=== PATIENT | female | born 1965 | race Caucasian/White ===

== ENCOUNTER 2019-08-30 13:19 | Emergency (ER) | payer SELFPAY ==
[2019-08-30] MEDS ORDERED: Ketorolac Tromethamine 30 MG/ML VIAL ONE (14:32)
--- NOTE | 2019-08-30 14:44 | RAD ---
RIGHT HIP 2 VIEWS: Date: 08/30/19 HISTORY: Injury. Right hip pain. FINDINGS/IMPRESSION: There are degenerative changes in the right hip joint. No fracture or dislocation identified. POS: [facility]
--- NOTE | 2019-08-30 15:16 | RAD ---
RIGHT KNEE 4 VIEWS: Date: 08/30/19 HISTORY: Fall. Pain. FINDINGS: Mild degenerative change at lateral compartment and patellofemoral compartment. No fractures. No tiffani lignment. No significant joint effusion. IMPRESSION: No fracture. POS: [facility]
== END 2019-08-30 13:42 | disposition home or self-care (01) ==
LOC: ERS 13:19
DX: S70.01XA Contusion of right hip, initial encounter (principal); M25.561 Pain in right knee; F31.9 Bipolar disorder, unspecified; F41.9 Anxiety disorder, unspecified; F17.210 Nicotine dependence, cigarettes, uncomplicated; W10.9XXA Fall (on) (from) unspecified stairs and steps, initial encounter
CPT/HCPCS: 96372; J1885

== ENCOUNTER 2020-01-16 01:16 | Observation (INO) | payer SELFPAY ==
[2020-01-16 04:07] LABS: #Basophils 0.1 thou/uL (0.0-0.2); #Eosinphils 0.3 thou/uL (0.0-0.7); #Lymphocytes 4.4 thou/uL (1.20-3.40); #Neutrophils 6.3 thou/uL (1.40-6.50); %Basophils 0.7 % (0.0-1.0); %Eosinophils 2.2 % (0.0-10.0); %Lymphocytes 36.4 % (21.0-51.0); %Monocytes 8.5 % (0.0-10.0); %Neutrophils 52.3 % (42.0-75.0); Hemoglobin 13.4 g/dL (12.0-16.0); Mean Corpuscular HGB CONC 33.9 g/dL (32.0-36.0); Mean Corpuscular Hemoglobin 32.4 pg (27.0-31.0); Mean Corpuscular Volume 95.4 fL (78.0-98.0); Mean Platelet Volume 7.6 fL (7.4-10.4); Platelet Count 418 thou/uL (130-400); RBC Distribution Width 11.8 % (11.5-14.5); Red Blood Cell (RBC) Count 4.14 mill/uL (4.20-5.40)
[2020-01-16 04:20] LABS: ALT (SGPT) 16 U/L (8-55); AST (SGOT) 17 U/L (5-34); Albumin 3.9 g/dL (3.5-5.0); Alkaline Phosphatase 122 U/L (40-110); Anion Gap 13 mmol/L (10-20); BUN (Urea Nitrogen) 22 mg/dL (9.8-20.1); Bilirubin, Total 0.3 mg/dL (0.2-1.2); Calc. Creatinine Clearance 0 mL/min (70-130); Carbon Dioxide 25 mmol/L (22-29); Chloride 105 mmol/L (98-107); Estimated GFR-MDRD 65; Globulin 3.5 g/dL (2.4-3.5); Glucose 102 mg/dL (70-105); Lipase 30 U/L (8-78); Potassium 3.8 mmol/L (3.5-5.1); Protein, Total 7.4 g/dL (6.0-8.3); Sodium 139 mmol/L (136-145)
[2020-01-16 05:14] LABS: Acetaminophen Less than 6.0 mcg/mL (10.0-30.0); Alcohol Less than 10 mg/dL (Less than 10); Salicylate Less than 8.0 mg/dL (15.0-30.0)
[2020-01-16 08:28] VITALS: BMI 35.6
[2020-01-16 08:38] LABS: Troponin I Less than 0.010 ng/mL (< 0.028)
[2020-01-16] MEDS ORDERED: FLU VACC QS2019-20(6MOS UP)/PF 60 MCG/0.5 ML SYRINGE IM ONE (09:00)
[2020-01-16] MEDS: Famotidine/PF 20 mg/2ml Vial SLOW IVP SCH ×2 (09:22→21:20)
--- NOTE | 2020-01-16 09:30 | HP ---
CHIEF COMPLAINT: Chest pain and nausea and vomiting. HISTORY OF PRESENT ILLNESS: The patient is a 54-year-old female with no significant past medical history, who presents to the hospital with complaints of chest tightness to her back and throat and also some nausea, vomiting, and diaphoresis x1 day. The patient states that she works as a drive in waiter/waitress and she had a sudden onset of the chest tightness, which concerned her. She kind of works through the whole day and did not have any relief of the tightness, so she came into the hospital for further evaluation. She had nausea, vomiting, and threw up x2, but no diarrhea. She states that she takes a significant amount of ibuprofen and BC for generalized body aches and pains. PAST MEDICAL HISTORY: Denies. PAST SURGICAL HISTORY: She had tonsillectomy. FAMILY HISTORY: Father had mesothelioma. SOCIAL HISTORY: She smokes a pack a day every 3 or 4 days. No alcohol use. No drug use. She is a full code. REVIEW OF SYSTEMS: All negative except for the ones mentioned above in the HPI. PHYSICAL EXAMINATION: VITAL SIGNS: Temperature of 97.4, pulse 75, respiratory rate 20, oxygen saturation 99% on room air, and blood pressure 145/74. GENERAL: She is awake, alert, and oriented x3. Does not appear in distress. CARDIOVASCULAR: S1 and S2 present. No murmurs, rubs, or gallops. LUNGS: Clear to auscultation. No rhonchi or wheezes noted. ABDOMEN: Soft. Mild tenderness on epigastric and right upper quadrant, however, no guarding. Bowel sounds are present x2. EXTREMITIES: Lower extremity, no edema. Pedal pulses are present x2. NEUROVASCULAR: Neurovascular-tan, no focal deficits noted. SKIN: No cuts, lesions, or bruises noted. LABORATORY RESULTS: WBCs of 12.0, hemoglobin of 13.4, hematocrit of 39.5, and platelets of 418. Chemistries; sodium of 139, potassium of 3.8, BUN of 22, and creatinine of 0.90. Troponin x2 were negative. Her EKG appears to be normal sinus rhythm, nothing overnight on the monitor. ASSESSMENT AND PLAN: The patient is a 54-year-old female, who presents to the hospital with complaints of chest pain. 1. Chest pain, appears atypical in nature. Given the patient's risk factors, we will get her a stress test, also get a right upper quadrant ultrasound and also put her on a PPI. She has been taking a significant amount of ibuprofen. Her lipase is normal. I have advised her against taking so much ibuprofen or take it with food. We will see if her symptoms improve and we will continue to monitor. 2. Mildly elevated leukocytosis. It could be reactive. 3. Obesity. Educated on diet, exercise, and weight loss. 4. Deep vein thrombosis prophylaxis. We will put the patient on SCDs. 5. Mild nausea and vomiting. This could be secondary to her possible gallbladder. We will get a right upper quadrant ultrasound. Job ID: [id number]
[2020-01-16] MEDS: Enoxaparin Sodium 40 MG/0.4 ML SYRINGE SC SCH (11:32)
[2020-01-16] MEDS: Acetaminophen 325 MG TAB PO PRN (11:35)
--- NOTE | 2020-01-16 12:41 | RAD ---
CHEST 1 VIEW: Date: 01/16/2020 HISTORY: Chest tightness. COMPARISON: 03/14/2017. FINDINGS: Mild hyperinflation with some linear parenchymal changes in the bases, possibly chronic change or sub segmental atelectasis. No confluent pneumonia, overt edema, or pleural effusion. IMPRESSION: Mild hyperinflation. Minimal more chronic appearing linear changes in the bases. No significant new p rocess. POS: [facility]
--- NOTE | 2020-01-16 14:55 | ULT ---
Exam: Right upper quadrant ultrasound: HISTORY: Nausea and vomiting COMPARISON: None FINDINGS: Visualized liver:Coarse heterogeneous liver echogenicity evidence for fatty change. Gallbladder:No evidence of gallstones, wall thickening, edema, or pericholecystic fluid. Common bile duct:Within normal limits. 2.3 x 3.2 cm right renal cyst. No renal hydronephrosis. Visualized pancreas is unremarkable. No evidence for abscess or abnormal fluid collection in the right upper quadrant. IMPRESSION: Coarse liver echogenicity evidence for fatty change. Right renal cyst.
[2020-01-17] MEDS: Acetaminophen 325 MG TAB PO PRN ×2 (01:15→10:44)
[2020-01-17] MEDS ORDERED: Regadenoson 0.4 MG/5 ML SYRINGE ONE (08:58)
[2020-01-17] MEDS: Famotidine/PF 20 mg/2ml Vial SLOW IVP SCH (10:44)
[2020-01-17] MEDS: Enoxaparin Sodium 40 MG/0.4 ML SYRINGE SC SCH (10:53)
--- NOTE | 2020-01-17 10:55 | NM ---
NUCLEAR MEDICINE CARDIAC MYOCARDIAL PERFUSION SPECT EJECTION FRACTION STUDY WALL MOTION CINE: DATE: 01/17/2020 HISTORY: 54-year-old female smoker presents with chest pain TECHNIQUE: Number of days: 2 Rest study: Technetium 99m-sestamibi (Cardiolite) dose: 30.4 mCi Pharmacologic stress: Lexiscan dose: 0.4 mg Stress study: Technetium 99m-sestamibi (Cardiolite) dose: 32.1 mCi FINDINGS: CARDIAC (MYOCARDIAL PERFUSION) SPECT There are no reversible myocardial perfusion defects. EJECTION FRACTION STUDY Left ventricular EF = 62 % WALL MOTION CINE Normal IMPRESSION: No evidence of reversible ischemia.
[2020-01-17 11:23] VITALS: BP 133/66; TEMP 98.2
--- NOTE | 2020-01-18 03:15 | DIS ---
DATE OF ADMISSION: 01/16/2020 DATE OF DISCHARGE: 01/17/2020 PRIMARY CARE PROVIDER: [facility]. DISCHARGE DIAGNOSES: 1. Chest pain. 2. Chest pain most likely secondary to musculoskeletal etiology. CONDITION OF PATIENT ON THE DAY OF DISCHARGE: Stable. I assessed Ms. Lo on the day of discharge. She denies any chest pain or shortness of breath. Vital signs are stable. S1 and S2 are heard, regular. Lungs are clear to auscultation bilaterally. DISCHARGE MEDICATIONS: None. POST-ACUTE CARE FOLLOWUP: With primary care provider in 3 days. DIET: Heart healthy. ACTIVITY: No restrictions. HOSPITAL COURSE: Ms. Lo is a pleasant 54-year-old lady, who was admitted to [facility] on January 16, 2020 for chest pain. Please refer to Dr. Snell's history and physical note dated January 16, 2020 for further details. She had abdominal ultrasound, which showed coarse liver echogenicity evidence for fatty change and right renal cyst. Nuclear stress test was normal, with left ventricular ejection fraction of 62%. She has been advised to minimize ibuprofen use. She has been advised to follow up with primary care provider in 3 to 5 days for management of her arthritis. D-dimer was normal at 0.41 during this hospitalization. Many thanks for allowing me to participate in your patient's care. Please feel free to contact me with any questions or concerns. DISCHARGE DESTINATION: Home. Job ID: [id number]
== END 2020-01-17 12:34 | disposition home or self-care (01) ==
LOC: ERS 01:16 → 2SW 04:56
PROVIDERS: ADMIT Internal Medicine; ATTEND Internal Medicine
DX: R07.89 Other chest pain (principal); F17.210 Nicotine dependence, cigarettes, uncomplicated; D72.829 Elevated white blood cell count, unspecified; R11.2 Nausea with vomiting, unspecified; Q61.01 Congenital single renal cyst; M19.90 Unspecified osteoarthritis, unspecified site; E66.9 Obesity, unspecified; Z68.35 Body mass index [BMI] 35.0-35.9, adult
CPT/HCPCS: 36415; 71045; 76705; 78452; 80053; 80307; 83690; 84484; 85025; 85379; 90471; 90686; 93005; 93017; 94760; 96372; 96374; 96376; A9500; G0008; G0378; J1650; J2785; S0028

== ENCOUNTER 2021-02-02 18:03 | Emergency (ER) | payer SELFPAY | END 2021-02-02 20:33 | disposition left against medical advice (07) | LOC: ERS 18:03 | DX: Z53.21 Procedure and treatment not carried out due to patient leaving prior to being seen by health care provider (principal) ==

== ENCOUNTER 2021-02-04 16:39 | Emergency (ER) | payer SELFPAY ==
[2021-02-04 18:05] LABS: #Basophils 0.1 thou/uL (0.0-0.2); #Eosinphils 0.2 thou/uL (0.0-0.7); #Lymphocytes 4.1 thou/uL (1.20-3.40); #Monocytes 0.7 thou/uL (0.11-0.59); #Neutrophils 4.8 thou/uL (1.40-6.50); %Basophils 1.2 % (0.0-1.0); %Eosinophils 2.4 % (0.0-10.0); %Lymphocytes 41.2 % (21.0-51.0); %Monocytes 6.6 % (0.0-10.0); %Neutrophils 48.6 % (42.0-75.0); Hemoglobin 14.5 g/dL (12.0-16.0); Mean Corpuscular HGB CONC 32.3 g/dL (32.0-36.0); Mean Corpuscular Hemoglobin 30.8 pg (27.0-31.0); Mean Corpuscular Volume 95.4 fL (78.0-98.0); Mean Platelet Volume 8.1 fL (7.4-10.4); Platelet Count 346 thou/uL (130-400); RBC Distribution Width 11.8 % (11.5-14.5); White Blood Cell (WBC) Count 9.9 thou/uL (4.8-10.8)
[2021-02-04 18:21] LABS: ALT (SGPT) 23 U/L (8-55); AST (SGOT) 24 U/L (5-34); Alkaline Phosphatase 123 U/L (40-110); Anion Gap 16 mmol/L (10-20); BUN (Urea Nitrogen) 18 mg/dL (9.8-20.1); Bilirubin, Total 0.3 mg/dL (0.2-1.2); Calc. Creatinine Clearance 0 mL/min (70-130); Calcium 8.7 mg/dL (7.8-10.44); Carbon Dioxide 20 mmol/L (22-29); Chloride 105 mmol/L (98-107); Globulin 3.5 g/dL (2.4-3.5); Glucose 107 mg/dL (70-105); Lipase 33 U/L (8-78); Potassium 4.1 mmol/L (3.5-5.1); Protein, Total 7.5 g/dL (6.0-8.3); Sodium 137 mmol/L (136-145)
[2021-02-04] MEDS ORDERED: HYDROcodone/Acetaminophen 7.5/325 mg Tablet ONE (19:22)
== END 2021-02-04 19:40 | disposition home or self-care (01) ==
LOC: ERS 16:39
DX: M25.462 Effusion, left knee (principal); M25.461 Effusion, right knee; R60.0 Localized edema; F17.210 Nicotine dependence, cigarettes, uncomplicated
CPT/HCPCS: 36415; 71045; 80053; 83690; 83880; 84484; 85025; 93005; 94760

== ENCOUNTER 2021-03-22 10:05 | Emergency (ER) | payer SELFPAY | END 2021-03-22 11:35 | disposition home or self-care (01) | LOC: ERS 10:05 | DX: M17.11 Unilateral primary osteoarthritis, right knee (principal); M25.461 Effusion, right knee; F17.210 Nicotine dependence, cigarettes, uncomplicated | CPT/HCPCS: 99283 ==

== ENCOUNTER 2021-05-06 14:17 | Emergency (ER) | payer SELFPAY ==
[2021-05-06] MEDS ORDERED: Ketorolac Tromethamine 30 MG/ML VIAL ONE (14:52)
== END 2021-05-06 15:15 | disposition home or self-care (01) ==
LOC: ERS 14:17
DX: M25.461 Effusion, right knee (principal); F17.210 Nicotine dependence, cigarettes, uncomplicated
CPT/HCPCS: 96372; 99283; J1885

== ENCOUNTER 2021-11-07 13:35 | Emergency (ER) | payer SELFPAY | END 2021-11-07 15:20 | disposition home or self-care (01) | LOC: ERS 13:35 | DX: S81.811A Laceration without foreign body, right lower leg, initial encounter (principal); W26.8XXA Contact with other sharp object(s), not elsewhere classified, initial encounter; F17.210 Nicotine dependence, cigarettes, uncomplicated | CPT/HCPCS: 12001 ==

== ENCOUNTER 2022-09-02 09:07 | Emergency (ER) | payer SELFPAY ==
[2022-09-02] MEDS ORDERED: Morphine 4 MG/ML VIAL ONE (10:14)
[2022-09-02] MEDS ORDERED: Ondansetron PF 4 MG/2 ML Vial ONE (10:14)
[2022-09-02 10:16] LABS: #Basophils 0.1 thou/uL (0.0-0.2); #Eosinphils 0.3 thou/uL (0.0-0.7); #Lymphocytes 2.6 thou/uL (1.20-3.40); #Monocytes 0.6 thou/uL (0.11-0.59); #Neutrophils 6.7 thou/uL (1.40-6.50); %Eosinophils 2.8 % (0.0-10.0); %Lymphocytes 24.7 % (21.0-51.0); %Monocytes 6.2 % (0.0-10.0); %Neutrophils 65.3 % (42.0-75.0); Hemoglobin 14.3 g/dL (12.0-16.0); Mean Corpuscular Hemoglobin 31.1 pg (27.0-31.0); Mean Corpuscular Volume 97.2 fL (78.0-98.0); Mean Platelet Volume 7.9 fL (7.4-10.4); Platelet Count 318 thou/uL (130-400); Red Blood Cell (RBC) Count 4.59 mill/uL (4.20-5.40); White Blood Cell (WBC) Count 10.3 thou/uL (4.8-10.8)
[2022-09-02 10:56] LABS: ALT (SGPT) 21 U/L (8-55); AST (SGOT) 23 U/L (5-34); Albumin 3.9 g/dL (3.5-5.0); Alkaline Phosphatase 131 U/L (40-110); Anion Gap 13 mmol/L (10-20); BUN (Urea Nitrogen) 25 mg/dL (9.8-20.1); Bilirubin, Total 0.2 mg/dL (0.2-1.2); Calc. Creatinine Clearance 0 mL/min (70-130); Calcium 8.9 mg/dL (7.8-10.44); Carbon Dioxide 23 mmol/L (22-29); Chloride 105 mmol/L (98-107); Estimated GFR 89; Globulin 3.6 g/dL (2.4-3.5); Glucose 188 mg/dL (70-105); Lipase 24 U/L (8-78); Potassium 3.8 mmol/L (3.5-5.1); Protein, Total 7.5 g/dL (6.0-8.3); Sodium 137 mmol/L (136-145)
[2022-09-02] MEDS ORDERED: Ketorolac Tromethamine 30 MG/ML VIAL ONE (11:44)
[2022-09-02] MEDS ORDERED: Iopamidol 370 76% 100 ML VIAL ONE (12:02)
[2022-09-02 12:17] LABS: Bacteria/HPF None Seen HPF (None Seen); Bilirubin Negative (Negative); Blood, Urine 3+ (Negative); Clarity Clear (Clear); Glucose, Urine (Dipstick) Normal (Negative); Ketone, Urine Negative (Negative); Leukocyte Negative Leu/uL (Negative); Nitrite Negative (Negative); Protein, Urine (Dipstick) Negative (Neg-Trace); RBC/HPF Greater than 50 HPF (0-3); Specific Gravity, Urine 1.044 (1.002-1.036); Squamous Epithelial None Seen HPF (0-3); Urobilinogen Normal mg/dL (Less than 2); WBC/HPF 0-3 HPF (0-3)
== END 2022-09-02 12:56 | disposition home or self-care (01) ==
LOC: ERS 09:07
DX: N13.2 Hydronephrosis with renal and ureteral calculous obstruction (principal); F17.200 Nicotine dependence, unspecified, uncomplicated
CPT/HCPCS: 36415; 74177; 80053; 81003; 81015; 83690; 85025; 96374; 96375; J1885; J2270; J2405; Q9967

== ENCOUNTER 2023-04-07 22:15 | Emergency (ER) | payer SELFPAY | END 2023-04-08 00:32 | disposition home or self-care (01) | LOC: ERS 22:15 | DX: M71.22 Synovial cyst of popliteal space [Baker], left knee (principal); F17.210 Nicotine dependence, cigarettes, uncomplicated ==

== ENCOUNTER 2023-12-19 12:30 | Inpatient (IN) | payer OTHER, SELFPAY ==
[~2023-12-19 12:30] MED LIST: Iopamidol-370 76% 500 ML MDV (1 ML CHARGE) ONE
[2023-12-19 12:47] LABS: #Basophils 0.1 thou/uL (0.0-0.2); #Eosinphils 0.4 thou/uL (0.0-0.7); #Monocytes 0.8 thou/uL (0.11-0.59); #Neutrophils 6.6 thou/uL (1.40-6.50); %Basophils 0.9 % (0.0-1.0); %Eosinophils 3.6 % (0.0-10.0); %Lymphocytes 25.1 % (21.0-51.0); %Monocytes 7.6 % (0.0-10.0); %Neutrophils 62.5 % (42.0-75.0); Hematocrit 45.7 % (36.0-47.0); Hemoglobin 14.9 g/dL (12.0-16.0); Mean Corpuscular HGB CONC 32.6 g/dL (32.0-36.0); Mean Corpuscular Hemoglobin 30.7 pg (27.0-31.0); Mean Platelet Volume 9.9 fL (7.4-10.4); Platelet Count 369 10x3/uL (130-400); RBC Distribution Width 12.4 % (11.5-14.5); Red Blood Cell (RBC) Count 4.86 mill/uL (4.20-5.40); White Blood Cell (WBC) Count 10.6 10x3/uL (4.8-10.8)
[2023-12-19 13:08] LABS: ALT (SGPT) 17 U/L (8-55); AST (SGOT) 15 U/L (5-34); Albumin 3.9 g/dL (3.5-5.0); Alkaline Phosphatase 100 U/L (40-110); Anion Gap 15 mmol/L (10-20); BUN (Urea Nitrogen) 21 mg/dL (9.8-20.1); Bilirubin, Total 0.6 mg/dL (0.2-1.2); CK (CPK) 43 U/L (29-168); Calc. Creatinine Clearance 0 mL/min (70-130); Calcium 8.9 mg/dL (7.8-10.44); Carbon Dioxide 24 mmol/L (22-29); Chloride 102 mmol/L (98-107); Estimated GFR 83; Globulin 3.6 g/dL (2.4-3.5); Glucose 160 mg/dL (70-105); Potassium 4.5 mmol/L (3.5-5.1); Protein, Total 7.5 g/dL (6.0-8.3); Sodium 136 mmol/L (136-145)
[2023-12-19 13:10] LABS: Troponin I Less than 0.010 ng/mL (< 0.028)
[2023-12-19] MEDS ORDERED: Aspirin 300 MG Suppository ONE (13:10)
[2023-12-19 13:33] LABS: INR-International Normal Ratio 0.9; Prothrombin Time 12.4 sec (12.0-14.7)
[2023-12-19 13:35] LABS: PTT 24.4 sec (22.9-36.1)
[2023-12-19 13:47] LABS: Magnesium 1.7 mg/dL (1.6-2.6)
[2023-12-19] MEDS ORDERED: Acetaminophen 650 MG Suppository PR PRN (15:03)
[2023-12-19] MEDS ORDERED: hydrALAZINE 20 MG/ML VIAL SLOW IVP PRN (15:29)
[2023-12-19 16:19] LABS: Bacteria/HPF None Seen HPF (None Seen); Bilirubin Negative (Negative); Blood, Urine Negative (Negative); CAUTI Indications for Culture Alt mental st,lethar; Clarity Clear (Clear); Glucose, Urine (Dipstick) Normal (Negative); Ketone, Urine Negative (Negative); Leukocyte Negative Leu/uL (Negative); Nitrite Negative (Negative); Protein, Urine (Dipstick) Negative (Neg-Trace); RBC/HPF 0-3 HPF (0-3); Squamous Epithelial 0-3 HPF (0-3); Urobilinogen Normal mg/dL (Less than 2); WBC/HPF 0-3 HPF (0-3); pH, Urine 7.5 (5.0-9.0)
[2023-12-19 17:04] LABS: Specific Gravity, Urine Greater than 1.060 (1.002-1.036)
[2023-12-19 17:06] LABS: Urine Culture Reflex No No
[2023-12-19 18:22] LABS: Troponin I Less than 0.010 ng/mL (< 0.028)
[2023-12-19] MEDS ORDERED: Acetaminophen 325 MG TAB ONE (20:21)
[2023-12-19 20:50] LABS: Troponin I Less than 0.010 ng/mL (< 0.028)
[2023-12-19 22:28] VITALS: BMI 36.5
[2023-12-19] MEDS: Famotidine 20 MG TAB PO SCH (23:37)
[2023-12-19] MEDS: Atorvastatin Calcium 40 MG TAB PO SCH (23:38)
[2023-12-20 05:32] LABS: Hematocrit 42.5 % (36.0-47.0); Hemoglobin 13.8 g/dL (12.0-16.0); Manual Diff?? YES; Mean Corpuscular HGB CONC 32.5 g/dL (32.0-36.0); Mean Corpuscular Hemoglobin 31.2 pg (27.0-31.0); Mean Corpuscular Volume 95.9 fl (78.0-98.0); Mean Platelet Volume 10.4 fL (7.4-10.4); Platelet Count 338 10x3/uL (130-400); RBC Distribution Width 12.6 % (11.5-14.5); Red Blood Cell (RBC) Count 4.43 mill/uL (4.20-5.40)
[2023-12-20 05:44] LABS: Hemoglobin A1c 7.7 % (4.0-6.0)
[2023-12-20 05:59] LABS: Anion Gap 14 mmol/L (10-20); BUN (Urea Nitrogen) 17 mg/dL (9.8-20.1); Calc. Creatinine Clearance 143 mL/min (70-130); Calcium 8.4 mg/dL (7.8-10.44); Carbon Dioxide 24 mmol/L (22-29); Cardiac Risk 3.3 (Less than 4.5); Chloride 104 mmol/L (98-107); Cholesterol 157 mg/dl (< 200 Desired); Estimated GFR 99; Glucose 145 mg/dL (70-105); HDL Cholesterol 47 mg/dL (>60 Neg Risk); LDL Cholesterol, Calculated 89 mg/dL; Potassium 3.8 mmol/L (3.5-5.1); Sodium 138 mmol/L (136-145); Triglycerides 107 mg/dL (Less than 150)
[2023-12-20] MEDS: Acetaminophen 325 MG TAB PO PRN (06:00)
[2023-12-20 06:02] LABS: Delete Auto Diff?? YES
[2023-12-20 06:55] LABS: Anisocytosis SLIGHT = 6-15 cells HPF (0-5); Band 3 % (5-11); CellaVision Operator ID LAB.JMM; Eosinophils 4 % (0-10); Hypochromia SLIGHT = 6-15 cells HPF (0-5); Lymphocytes 34 % (21-51); Macrocytosis SLIGHT = 6-15 cells HPF (0-5); Monocytes 6 % (0-10); Neutrophil 52 % (42-75); Nucleated RBC (Manual Ct) 1 % (0); Platelet Adequacy Comment Platelets Normal; Polychromasia SLIGHT = 2-3 cells HPF (0-2); Total Cell Count 100
[2023-12-20 08:14] LABS: Amphetamine Detected (NotDetected); Barbiturates Screen Not Detected (NotDetected); Benzodiazepine Screen Not Detected (NotDetected); Cocaine Metabolite Screen Not Detected (NotDetected); Methadone Not Detected (NotDetected); Methamphetamine Detected (NotDetected); Opiate Screen Not Detected (NotDetected); Oxycodone Screen Not Detected (NotDetected); Phencyclidine (PCP) Not Detected (NotDetected); THC/Cannabinoid Screen Detected (NotDetected); Tricyclic Screen Not Detected (NotDetected)
[2023-12-20] MEDS: Famotidine 20 MG TAB PO SCH ×2 (08:22→20:05)
[2023-12-20] MEDS ORDERED: HYDROcodone/Acetaminophen 5/325 mg Tablet PO PRN (08:25)
[2023-12-20] MEDS ORDERED: Aspirin 81 mg Enteric Coated Tablet PO SCH (09:00)
[2023-12-20] MEDS: Ketorolac Tromethamine 30 MG (1 mL) VIAL IVP PRN ×2 (14:03→21:13)
[2023-12-20] MEDS: Atorvastatin Calcium 40 MG TAB PO SCH (20:05)
[2023-12-21] MEDS: Ketorolac Tromethamine 30 MG (1 mL) VIAL IVP PRN (04:05)
[2023-12-21 08:07] LABS: #Basophils 0.1 thou/uL (0.0-0.2); #Eosinphils 0.4 thou/uL (0.0-0.7); #Neutrophils 6.9 thou/uL (1.40-6.50); %Basophils 0.7 % (0.0-1.0); %Eosinophils 3.1 % (0.0-10.0); %Lymphocytes 28.8 % (21.0-51.0); %Monocytes 8.8 % (0.0-10.0); %Neutrophils 58.3 % (42.0-75.0); Hematocrit 44.5 % (36.0-47.0); Hemoglobin 14.2 g/dL (12.0-16.0); Mean Corpuscular HGB CONC 31.9 g/dL (32.0-36.0); Mean Corpuscular Volume 94.1 fl (78.0-98.0); Mean Platelet Volume 10.3 fL (7.4-10.4); Platelet Count 356 10x3/uL (130-400); RBC Distribution Width 12.5 % (11.5-14.5); Red Blood Cell (RBC) Count 4.73 mill/uL (4.20-5.40); White Blood Cell (WBC) Count 11.8 10x3/uL (4.8-10.8)
[2023-12-21 08:32] LABS: Anion Gap 11 mmol/L (10-20); BUN (Urea Nitrogen) 19 mg/dL (9.8-20.1); Calc. Creatinine Clearance 143 mL/min (70-130); Calcium 8.5 mg/dL (7.8-10.44); Carbon Dioxide 24 mmol/L (22-29); Chloride 106 mmol/L (98-107); Estimated GFR 99; Glucose 131 mg/dL (70-105); Potassium 3.9 mmol/L (3.5-5.1); Sodium 137 mmol/L (136-145)
[2023-12-21] MEDS: Famotidine 20 MG TAB PO SCH ×2 (08:34→20:39)
[2023-12-21] MEDS ORDERED: Aspirin 300 MG Suppository PR SCH (09:00)
[2023-12-21] MEDS ORDERED: Dextrose 5% in Water 1,000 ML IV PRN (10:18)
[2023-12-21] MEDS ORDERED: Glucagon 1 MG/ML KIT IM PRN (10:18)
[2023-12-21] MEDS ORDERED: Dextrose 50% Abboject 50 ML SYRINGE SLOW IVP PRN (10:18)
[2023-12-21] MEDS ORDERED: HumaLOG 300 UNITS/3 ML VIAL SC PRN (10:18)
[2023-12-21] MEDS: Acetaminophen 325 MG TAB PO PRN (11:00)
[2023-12-21] MEDS: Atorvastatin Calcium 40 MG TAB PO SCH (20:39)
[2023-12-21 21:15] LABS: Magnesium 1.8 mg/dL (1.6-2.6)
[2023-12-22] MEDS: Acetaminophen 325 MG TAB PO PRN ×2 (06:34→17:31)
[2023-12-22 06:44] LABS: #Basophils 0.1 thou/uL (0.0-0.2); #Eosinphils 0.4 thou/uL (0.0-0.7); #Monocytes 0.9 thou/uL (0.11-0.59); %Basophils 0.6 % (0.0-1.0); %Eosinophils 3.1 % (0.0-10.0); %Monocytes 7.2 % (0.0-10.0); %Neutrophils 56.8 % (42.0-75.0); Hematocrit 43.9 % (36.0-47.0); Hemoglobin 14.2 g/dL (12.0-16.0); Mean Corpuscular HGB CONC 32.3 g/dL (32.0-36.0); Mean Corpuscular Hemoglobin 30.6 pg (27.0-31.0); Mean Corpuscular Volume 94.6 fl (78.0-98.0); Mean Platelet Volume 10.3 fL (7.4-10.4); Platelet Count 378 10x3/uL (130-400); RBC Distribution Width 12.4 % (11.5-14.5); Red Blood Cell (RBC) Count 4.64 mill/uL (4.20-5.40); White Blood Cell (WBC) Count 12.4 10x3/uL (4.8-10.8)
[2023-12-22 07:06] LABS: Anion Gap 12 mmol/L (10-20); BUN (Urea Nitrogen) 17 mg/dL (9.8-20.1); Calc. Creatinine Clearance 133 mL/min (70-130); Calcium 8.9 mg/dL (7.8-10.44); Carbon Dioxide 24 mmol/L (22-29); Chloride 105 mmol/L (98-107); Estimated GFR 91; Glucose 136 mg/dL (70-105); Potassium 3.8 mmol/L (3.5-5.1); Sodium 137 mmol/L (136-145)
[2023-12-22] MEDS ORDERED: Midazolam HCl 2 mg/2 ml Vial ONE (13:29)
[2023-12-22] MEDS ORDERED: PROPOFOL 20 ML ONE ×2 (13:35)
[2023-12-22] MEDS: Famotidine 20 MG TAB PO SCH ×2 (17:32→21:31)
[2023-12-22] MEDS: Aspirin Chewable 81 MG TAB PO SCH (17:32)
[2023-12-22] MEDS: Atorvastatin Calcium 40 MG TAB PO SCH (21:30)
[2023-12-23] MEDS: Acetaminophen 325 MG TAB PO PRN ×3 (06:14→21:27)
[2023-12-23] MEDS: Aspirin Chewable 81 MG TAB PO SCH (09:15)
[2023-12-23] MEDS: Famotidine 20 MG TAB PO SCH ×2 (09:15→21:27)
[2023-12-23] MEDS: Melatonin 3 MG TAB PO PRN (21:27)
[2023-12-23] MEDS: Atorvastatin Calcium 40 MG TAB PO SCH (21:27)
[2023-12-24] MEDS: Famotidine 20 MG TAB PO SCH ×2 (09:16→21:16)
[2023-12-24] MEDS: Aspirin Chewable 81 MG TAB PO SCH (09:16)
[2023-12-24] MEDS: metFORMIN 500 MG TAB PO SCH (18:13)
[2023-12-24] MEDS: Acetaminophen 325 MG TAB PO PRN (19:23)
[2023-12-24] MEDS: Melatonin 3 MG TAB PO PRN (21:16)
[2023-12-24] MEDS: Atorvastatin Calcium 40 MG TAB PO SCH (21:16)
[2023-12-25] MEDS: Aspirin Chewable 81 MG TAB PO SCH (09:30)
[2023-12-25] MEDS: Lisinopril 5 MG TAB PO SCH (09:30)
[2023-12-25] MEDS: Famotidine 20 MG TAB PO SCH ×2 (09:31→21:01)
[2023-12-25] MEDS: Acetaminophen 325 MG TAB PO PRN ×2 (16:09→21:02)
[2023-12-25] MEDS: metFORMIN 500 MG TAB PO SCH (17:24)
[2023-12-25] MEDS: Melatonin 3 MG TAB PO PRN (21:01)
[2023-12-25] MEDS: Atorvastatin Calcium 40 MG TAB PO SCH (21:01)
[2023-12-26] MEDS: Lisinopril 5 MG TAB PO SCH (09:30)
[2023-12-26] MEDS: Aspirin Chewable 81 MG TAB PO SCH (09:30)
[2023-12-26] MEDS: Famotidine 20 MG TAB PO SCH ×2 (09:30→19:54)
[2023-12-26] MEDS: Acetaminophen 325 MG TAB PO PRN ×2 (09:30→13:27)
[2023-12-26] MEDS: metFORMIN 500 MG TAB PO SCH (16:42)
[2023-12-26] MEDS: Melatonin 3 MG TAB PO PRN (19:54)
[2023-12-26] MEDS: Atorvastatin Calcium 40 MG TAB PO SCH (19:54)
[2023-12-27] MEDS: Acetaminophen 325 MG TAB PO PRN (04:04)
[2023-12-27] MEDS: Famotidine 20 MG TAB PO SCH (09:20)
[2023-12-27] MEDS: Aspirin Chewable 81 MG TAB PO SCH (09:21)
[2023-12-27] MEDS: Lisinopril 5 MG TAB PO SCH (09:21)
[2023-12-27 16:07] VITALS: TEMP 97.7
[2023-12-27] MEDS: metFORMIN 500 MG TAB PO SCH (16:37)
[2023-12-27 17:02] VITALS: BP 112/70
== END 2023-12-27 19:11 | DRG 64 ==
LOC: ERS 12:30 → ERHOLD 14:40 → 2SE 22:02
PROVIDERS: ADMIT Internal Medicine; ATTEND Hospitalist
PROC: B24BZZ4 Ultrasonography of Heart with Aorta, Transesophageal (ICD-10-PCS; principal; 2023-12-22)
DX: I63.511 Cerebral infarction due to unspecified occlusion or stenosis of right middle cerebral artery (principal); I63.231 Cerebral infarction due to unspecified occlusion or stenosis of right carotid arteries; G81.94 Hemiplegia, unspecified affecting left nondominant side; Q21.12 Patent foramen ovale; I10 Essential (primary) hypertension; F17.210 Nicotine dependence, cigarettes, uncomplicated; Z79.899 Other long term (current) drug therapy; E11.9 Type 2 diabetes mellitus without complications; E78.5 Hyperlipidemia, unspecified; Z90.89 Acquired absence of other organs; F15.10 Other stimulant abuse, uncomplicated; Z79.82 Long term (current) use of aspirin; I16.0 Hypertensive urgency; F19.10 Other psychoactive substance abuse, uncomplicated
CPT/HCPCS: 36415; 36416; 70450; 70496; 70498; 70551; 80048; 80053; 80061; 80306; 81001; 82550; 83036; 83735; 84443; 84484; 85025; 85610; 85730; 93005; 93306; 93312; 93970; J1815; J1885; J2250; J2704; Q9967

== ENCOUNTER 2024-06-12 22:33 | Inpatient (IN) | payer OTHER ==
[2024-06-12] MEDS ORDERED: Lorazepam 2 MG/ML VIAL ONE (23:03)
[2024-06-12] MEDS ORDERED: diphenhydrAMINE 50 MG/ML VIAL ONE (23:03)
[2024-06-12] MEDS ORDERED: Prochlorperazine 10 MG/2 ML VIAL ONE (23:03)
[2024-06-12 23:06] LABS: %Basophils 0.8 % (0.0-1.0); %Eosinophils 1.7 % (0.0-10.0); %Lymphocytes 38.4 % (21.0-51.0); %Monocytes 6.6 % (0.0-10.0); %Neutrophils 52.3 % (42.0-75.0); Hematocrit 49.5 % (36.0-47.0); Hemoglobin 16.7 g/dL (12.0-16.0); Mean Corpuscular HGB CONC 33.7 g/dL (32.0-36.0); Mean Corpuscular Hemoglobin 31.4 pg (27.0-31.0); Mean Platelet Volume 10.9 fL (7.4-10.4); Platelet Count 391 10x3/uL (130-400); RBC Distribution Width 12.6 % (11.5-14.5); Red Blood Cell (RBC) Count 5.32 mill/uL (4.20-5.40)
[2024-06-12 23:25] LABS: ALT (SGPT) 15 U/L (8-55); AST (SGOT) 19 U/L (5-34); Alkaline Phosphatase 111 U/L (40-110); Anion Gap 15 mmol/L (10-20); BUN (Urea Nitrogen) 10 mg/dL (9.8-20.1); Bilirubin, Total 0.7 mg/dL (0.2-1.2); Calc. Creatinine Clearance 0 mL/min (70-130); Calcium 9.8 mg/dL (7.8-10.44); Carbon Dioxide 26 mmol/L (22-29); Chloride 103 mmol/L (98-107); Estimated GFR 97; Globulin 3.9 g/dL (2.4-3.5); Glucose 125 mg/dL (70-105); Magnesium 1.7 mg/dL (1.6-2.6); Potassium 3.7 mmol/L (3.5-5.1); Protein, Total 7.9 g/dL (6.0-8.3); Sodium 140 mmol/L (136-145)
[2024-06-12 23:28] LABS: Troponin I Less than 0.010 ng/mL (< 0.028)
[2024-06-13] MEDS ORDERED: Aspirin Chewable 81 MG TAB ONE (00:49)
[2024-06-13 01:04] VITALS: BMI 28.8
[2024-06-13] MEDS ORDERED: Labetalol HCl 100 MG/20 ML VIAL SLOW IVP PRN (01:26)
[2024-06-13] MEDS ORDERED: Ondansetron PF 4 MG/2 ML Vial IVP PRN (01:26)
[2024-06-13] MEDS ORDERED: hydrALAZINE 20 MG/ML VIAL SLOW IVP PRN (01:26)
[2024-06-13] MEDS ORDERED: Glucagon 1 MG/ML KIT IM PRN (02:48)
[2024-06-13] MEDS ORDERED: Dextrose 50% Abboject 50 ML SYRINGE SLOW IVP PRN (02:48)
[2024-06-13] MEDS ORDERED: Dextrose 5% in Water 1,000 ML IV PRN (02:48)
[2024-06-13] MEDS ORDERED: Insulin Lispro 100 UNIT/ML 10 ML VIAL SC PRN ×2 (02:51)
[2024-06-13 04:34] LABS: #Basophils 0.06 10x3/uL (0.0-0.2); %Basophils 0.5 % (0.0-1.0); %Eosinophils 0.7 % (0.0-10.0); %Lymphocytes 31.3 % (21.0-51.0); %Monocytes 5.5 % (0.0-10.0); %Neutrophils 61.8 % (42.0-75.0); Hematocrit 43.1 % (36.0-47.0); Hemoglobin 14.2 g/dL (12.0-16.0); Mean Corpuscular HGB CONC 32.9 g/dL (32.0-36.0); Mean Corpuscular Hemoglobin 31.4 pg (27.0-31.0); Mean Corpuscular Volume 95.4 fL (78.0-98.0); Mean Platelet Volume 10.8 fL (7.4-10.4); Platelet Count 299 10x3/uL (130-400); RBC Distribution Width 12.5 % (11.5-14.5); Red Blood Cell (RBC) Count 4.52 mill/uL (4.20-5.40)
[2024-06-13 05:19] LABS: Anion Gap 11 mmol/L (10-20); BUN (Urea Nitrogen) 10 mg/dL (9.8-20.1); Calc. Creatinine Clearance 132 mL/min (70-130); Calcium 8.8 mg/dL (7.8-10.44); Carbon Dioxide 21 mmol/L (22-29); Cardiac Risk 2.6 (Less than 4.5); Chloride 107 mmol/L (98-107); Cholesterol 91 mg/dl (< 200 Desired); Estimated GFR 103; Glucose 102 mg/dL (70-105); HDL Cholesterol 35 mg/dL (>60 Neg Risk); LDL Cholesterol, Calculated 39 mg/dL; Potassium 3.7 mmol/L (3.5-5.1); Sodium 135 mmol/L (136-145); Triglycerides 83 mg/dL (Less than 150)
[2024-06-13] MEDS ORDERED: Acetaminophen 325 MG TAB ONE (06:28)
[2024-06-13] MEDS: Acetaminophen 325 MG TAB PO PRN (06:34)
[2024-06-13 06:48] LABS: Bacteria/HPF None Seen HPF (None Seen); Bilirubin Negative (Negative); Blood, Urine Negative (Negative); CAUTI Indications for Culture Alt mental st,lethar; Clarity Clear (Clear); Glucose, Urine (Dipstick) Normal (Negative); Ketone, Urine Negative (Negative); Leukocyte Negative Leu/uL (Negative); Nitrite Negative (Negative); Protein, Urine (Dipstick) Negative (Neg-Trace); RBC/HPF 0-3 HPF (0-3); Squamous Epithelial 0-3 HPF (0-3); Urobilinogen Normal mg/dL (Less than 2); WBC/HPF 0-3 HPF (0-3); pH, Urine 6.5 (5.0-9.0)
[2024-06-13 06:49] LABS: Specific Gravity, Urine 1.064 (1.002-1.036)
[2024-06-13 06:50] LABS: Urine Culture Reflex No No
[2024-06-13 06:56] LABS: Amphetamine Not Detected (NotDetected); Barbiturates Screen Not Detected (NotDetected); Benzodiazepine Screen Detected (NotDetected); Cocaine Metabolite Screen Not Detected (NotDetected); Methadone Not Detected (NotDetected); Methamphetamine Not Detected (NotDetected); Opiate Screen Not Detected (NotDetected); Oxycodone Screen Not Detected (NotDetected); Phencyclidine (PCP) Not Detected (NotDetected); THC/Cannabinoid Screen Detected (NotDetected); Tricyclic Screen Not Detected (NotDetected)
[2024-06-13] MEDS: Aspirin 81 mg Enteric Coated Tablet PO SCH (08:19)
[2024-06-13] MEDS: Atorvastatin Calcium 40 MG TAB PO SCH (21:36)
[2024-06-14] MEDS: Melatonin 3 MG TAB PO PRN (01:11)
[2024-06-14 05:08] LABS: #Basophils 0.08 10x3/uL (0.0-0.2); %Basophils 0.9 % (0.0-1.0); %Eosinophils 2.8 % (0.0-10.0); %Lymphocytes 49.7 % (21.0-51.0); %Neutrophils 37.4 % (42.0-75.0); Hematocrit 42.1 % (36.0-47.0); Hemoglobin 13.8 g/dL (12.0-16.0); Mean Corpuscular HGB CONC 32.8 g/dL (32.0-36.0); Mean Corpuscular Hemoglobin 31.1 pg (27.0-31.0); Mean Corpuscular Volume 94.8 fL (78.0-98.0); Mean Platelet Volume 11.5 fL (7.4-10.4); Platelet Count 296 10x3/uL (130-400); RBC Distribution Width 12.7 % (11.5-14.5); Red Blood Cell (RBC) Count 4.44 mill/uL (4.20-5.40)
[2024-06-14 05:32] LABS: Anion Gap 12 mmol/L (10-20); BUN (Urea Nitrogen) 13 mg/dL (9.8-20.1); Calc. Creatinine Clearance 116 mL/min (70-130); Calcium 8.8 mg/dL (7.8-10.44); Carbon Dioxide 24 mmol/L (22-29); Chloride 106 mmol/L (98-107); Estimated GFR 100; Glucose 107 mg/dL (70-105); Potassium 4.2 mmol/L (3.5-5.1); Sodium 138 mmol/L (136-145)
[2024-06-14] MEDS: levETIRAcetam 500 MG TAB PO SCH (09:07)
[2024-06-14] MEDS: Clopidogrel Bisulfate 75 MG TAB PO SCH (09:07)
[2024-06-14 17:44] VITALS: BMI 28.8
[2024-06-15 17:05] VITALS: BP 114/81; TEMP 98
== END 2024-06-15 20:00 | disposition home or self-care (01) | DRG 65 ==
LOC: ERS 22:33 → ERHOLD 06-13 00:30 → 2SE 06-13 20:13 → OBSVTOIN 06-14 10:27
PROVIDERS: ADMIT Internal Medicine; ATTEND Internal Medicine
DX: I63.9 Cerebral infarction, unspecified (principal); G81.94 Hemiplegia, unspecified affecting left nondominant side; E11.9 Type 2 diabetes mellitus without complications; F17.210 Nicotine dependence, cigarettes, uncomplicated; I10 Essential (primary) hypertension; G93.89 Other specified disorders of brain; Z79.84 Long term (current) use of oral hypoglycemic drugs; Z79.82 Long term (current) use of aspirin; Z79.899 Other long term (current) drug therapy
CPT/HCPCS: 36415; 36416; 70450; 70496; 70498; 70551; 71045; 80048; 80053; 80061; 80306; 81001; 83735; 83880; 84443; 84484; 85025; 93005; 94760; 96374; 96375; G0378; J0780; J1200; J2060

== ENCOUNTER 2024-10-26 15:42 | Emergency (ER) | payer OTHER ==
[2024-10-26] MEDS ORDERED: Dexamethasone 10 MG/ML VIAL ONE (19:14)
[2024-10-26] MEDS ORDERED: cefTRIAXone (ROCEPHIN) 1 GM VIAL ONE (19:14)
[2024-10-26] MEDS ORDERED: Lidocaine 1% MPF 2 ML VIAL ONE (19:14)
== END 2024-10-26 19:30 | disposition home or self-care (01) ==
LOC: ERS 15:42
DX: R05.1 Acute cough (principal)
CPT/HCPCS: 71046; 96372; J0696; J1100

== ENCOUNTER 2025-08-29 14:36 | Emergency (ER) | payer MEDICAID, OTHER ==
[2025-08-29 16:13] LABS: #Basophils 0.07 10x3/uL (0.0-0.2); #Eosinophils 0.09 10x3/uL (0.0-0.7); #Monocytes 0.52 10x3/uL (0.11-0.59); #Neutrophils 5.43 10x3/uL (1.40-6.50); %Basophils 0.9 % (0.0-1.0); %Eosinophils 1.2 % (0.0-10.0); %Lymphocytes 17.4 % (21.0-51.0); %Monocytes 7.0 % (0.0-10.0); %Neutrophils 73.1 % (42.0-75.0); Hematocrit 45.9 % (36.0-47.0); Hemoglobin 14.6 g/dL (12.0-16.0); Mean Corpuscular Hemoglobin 31.0 pg (27.0-31.0); Mean Corpuscular Volume 97.5 fL (78.0-98.0); Platelet Count 302 10x3/uL (130-400); Red Blood Cell (RBC) Count 4.71 mill/uL (4.20-5.40); White Blood Cell (WBC) Count 7.43 10x3/uL (4.8-10.8)
[2025-08-29 16:39] LABS: ALT (SGPT) 10 U/L (Less than 34); AST (SGOT) 18 U/L (11-34); Albumin 3.6 g/dL (3.1-4.5); Alkaline Phosphatase 114 U/L (40-110); Anion Gap 14 mmol/L (10-20); BUN (Urea Nitrogen) 8 mg/dL (9.8-20.1); Bilirubin, Total 0.5 mg/dL (0.3-1.2); Calc. Creatinine Clearance 0 mL/min (70-130); Calcium 8.7 mg/dL (7.8-10.44); Carbon Dioxide 21 mmol/L (23-31); Chloride 107 mmol/L (98-107); Globulin 3.3 g/dL (2.4-3.5); Glucose 101 mg/dL (80-115); Potassium 3.7 mmol/L (3.5-5.1); Sodium 138 mmol/L (136-145)
[2025-08-29] MEDS ORDERED: Prochlorperazine 10 MG/2 ML VIAL ONE (17:44)
[2025-08-29] MEDS ORDERED: diphenhydrAMINE 50 MG/ML VIAL ONE (17:44)
[2025-08-29] MEDS ORDERED: Acetaminophen 500 MG TAB ONE (17:44)
[2025-08-29 17:58] LABS: Lipase 13 U/L (8-78); Magnesium 1.7 mg/dL (1.6-2.6)
== END 2025-08-29 19:45 | disposition home or self-care (01) ==
LOC: ERS 14:36
DX: U07.1 COVID-19 (principal); R07.89 Other chest pain; R51.9 Headache, unspecified; F17.210 Nicotine dependence, cigarettes, uncomplicated; I10 Essential (primary) hypertension; E11.9 Type 2 diabetes mellitus without complications; Z86.73 Personal history of transient ischemic attack (TIA), and cerebral infarction without residual deficits; Z95.5 Presence of coronary angioplasty implant and graft
CPT/HCPCS: 36415; 71046; 80053; 83690; 83735; 83880; 84484; 85025; 87428; 93005; 96374; 96375; J0780; J1200